=== PATIENT | female | born 1955 | race Caucasian/White ===

== ENCOUNTER 2016-07-12 09:27 | Emergency (ER) | payer BC, OTHER ==
[~2016-07-12] VITALS: Ht 152.4 cm; Wt 40.0 kg
[~2016-07-12 09:27] MED LIST: CITA10SO PO; HYDR-3580 PO; MEGE40TA PO; TRAZ300T2 PO; ZOCO40TA PO
[2016-07-12 09:30] VITALS: BP 118/57; PULSE 103; RESP 15; TEMP 98.2; O2SAT 97
[2016-07-12 09:40] VITALS: BP 131/74; PULSE 86; RESP 18; O2SAT 95
[2016-07-12] MEDS ORDERED: MUPI2CRE3 (09:49)
[2016-07-12] MEDS ORDERED: OMEP20TA PO (09:49)
[2016-07-12] MEDS ORDERED: CITA40TA4 PO (09:49)
[2016-07-12] MEDS ORDERED: CEPH500C PO (09:49)
[2016-07-12] MEDS ORDERED: SIMV20TA PO (09:49)
[2016-07-12] MEDS ORDERED: TEMA30CA PO (09:49)
[2016-07-12] MEDS ORDERED: CLON1TAB PO (09:49)
--- NOTE | 2016-07-12 10:08 | PD ---
HPI Chief Complaint: Skin Problem Time Seen by Provider: 10:06 Travel History International Travel<30 days: No Contact w/Intl Traveler<30days: No Traveled to known affect area: No History of Present Illness HPI 60-year-old female with history of anal cancer status post chemotherapy and radiation, presents to the ER today for 1 week history of left labia majora area of increased swelling, redness, abscess formation, was sent in by her primary care physician. She denies any new fevers or any other issues. Modifying Factors: None Associated Signs & Symptoms: Left labia majora area abscess and pain Risk Factors: None PFSH Past Medical History AAA: No Alzheimer's Disease: No Anxiety: Yes Depression: Yes Cancer: Yes (RECTUM) Cardiovascular Problems: No Chemotherapy: Yes Endocrine: No Gastrointestinal Disorders: Yes GERD: No Genitourinary: No Hiatal Hernia: No Immune Disorder: No Musculoskeletal: No Neurologic: No Psychiatric: Yes Reproductive: No Respiratory: No Radiation Therapy: Yes (FRIDAY ) Ulcer: No Tetanus Vaccination: < 5 Years Influenza Vaccination: Yes ?: Not Tubal Ligation: Yes Past Surgical History AICD: No Arteriovenous Shunt: No Insulin Pump: No Joint Replacement: No Pacemaker: No Other Surgery: Yes (RECTAL SURG / right arm picc) Social History Alcohol Use: No Tobacco Use: Yes (1 ppd) Substance Use: No Allergies-Medications (Allergen,Severity, Reaction): Coded Allergies: No Known Allergies (Unverified , 07/12/16) Reported Meds & Prescriptions Reported Meds & Active Scripts Active Reported Mupirocin (Mupirocin Calcium (Topical)) 2 % Cre Omeprazole 20 Mg Tab 20 Mg PO BID Citalopram (Citalopram Hydrobromide) 40 Mg Tab 40 Mg PO DAILY Cephalexin 500 Mg Cap 500 Mg PO Q6H Simvastatin 20 Mg Tab 20 Mg PO DAILY Clonazepam 1 Mg Tab 1 Mg PO BID PRN Temazepam 30 Mg Cap 30 Mg PO HS PRN Review of Systems Except as stated in HPI: all other systems reviewed are Neg Physical Exam Narrative GENERAL: Well-nourished, well-developed elderly white female patient in no acute distress. SKIN: Warm and dry. HEAD: Normocephalic. EYES: No scleral icterus. No injection or drainage. NECK: Supple, trachea midline. CARDIOVASCULAR: Regular rate and rhythm without murmurs, gallops, or rubs. RESPIRATORY: Breath sounds equal bilaterally. No accessory muscle use. GASTROINTESTINAL: Abdomen soft, non-tender, nondistended. : Normal external genitalia with left labia majora 2 cm area of erythema, tenderness, and underlying fluctuance under a pustule. MUSCULOSKELETAL: No cyanosis, or edema. BACK: Nontender without obvious deformity. No CVA tenderness. Data Data Last Documented VS Vital Signs Date Time Temp Pulse Resp B/P Pulse Ox O2 Delivery O2 Flow Rate FiO2 07/12/16 09:40 99 07/12/16 09:40 18 131/74 95 Room Air 07/12/16 09:30 98.2 Orders Wound Culture And Gram Stain (07/12/16 10:06) Lidocai-Epi 1%-1:100,000 Inj (Xylocaine- (07/12/16 10:15) MDM Medical Decision Making Medical Screen Exam Complete: Yes Emergency Medical Condition: Yes Medical Record Reviewed: Yes Differential Diagnosis Left labia majora abscess Narrative Course Primary care physician apparently had tried antibiotics and had failed antibiotic treatment. I&D was done by my PA without issues. At this point, my plan would be to release the patient would follow-up to primary care physician for wound check in 2 days. Return for any worsening in pain, swelling, fevers, and as needed. The plan has been discussed with the patient and she states understanding. Diagnosis Primary Impression: Abscess of labia majora Med/Other Pt SpecificInfo: Prescription(s) given Scripts Sulfamethoxazole-Trimethoprim (Bactrim DS)800-160 Mg Tab1 Tab PO BID #14 TAB Ref 0 Prov:Gustavo Fontana MD 07/12/16 Ibuprofen (Motrin Ib)200 Mg [id number] Mg PO Q6H PRN (PAIN SCALE 1 TO 10) #21 TAB Ref 0 Prov:Gustavo Fontana MD 07/12/16 Disposition: 01 DISCHARGE HOME Condition: Stable Gustavo Fontana MD Jul 12, 2016 10:08
[2016-07-12] MEDS ORDERED: LIDOCAINE 1%/EPINEPHrine 1:100,000 SOLN 20 ML VIAL INFIL ONE (10:15)
--- NOTE | 2016-07-12 10:34 | PD ---
Physical Exam Date Seen by Provider: Jul 12, 2016 Time Seen by Provider: 10:33 Narrative I was asked by Dr. Fontana to incise and drain abscess of the patient's left labia majora. Please see her documentation for full history and physical. Data Data Last Documented VS Vital Signs Date Time Temp Pulse Resp B/P Pulse Ox O2 Delivery O2 Flow Rate FiO2 07/12/16 09:40 99 07/12/16 09:40 18 131/74 95 Room Air 07/12/16 09:30 98.2 Orders Wound Culture And Gram Stain (07/12/16 10:06) Lidocai-Epi 1%-1:100,000 Inj (Xylocaine- (07/12/16 10:15) MDM Supervised Visit with TRACIE: No Procedures Procedure Narrative INCISION AND DRAINAGE OF ABSCESS: The area was prepped and was sterilely draped. A subcutaneous wheal of 1% Xylocaine with epinephrine with a total number 3 mL was used to anesthetize the area. The area was properly anesthetized. A number 11 scalpel was used to make a 1 -cm incision across the area of the abscess. Cultures were obtained. The abscess was drained an irrigated with normal saline. Quarter inch iodoform packing was placed in the wound. Sterile dressing applied. Patient advised to have packing removed in two days. Diagnosis Primary Impression: Abscess of labia majora Disposition: 01 DISCHARGE HOME Condition: Stable Neelima Garcia Jul 12, 2016 10:34
[2016-07-12] MEDS ORDERED: BACT800T5 PO (10:42)
[2016-07-12] MEDS ORDERED: MOTR200T4 PO (10:42)
[2016-07-12 10:56] VITALS: BP 127/71; PULSE 91; RESP 18; O2SAT 95
== END 2016-07-12 11:43 | disposition home or self-care (01) ==
LOC: NEPC 09:27
DX: N76.4 Abscess of vulva (principal); B96.89 Other specified bacterial agents as the cause of diseases classified elsewhere; F17.200 Nicotine dependence, unspecified, uncomplicated; Z85.048 Personal history of other malignant neoplasm of rectum, rectosigmoid junction, and anus; Z92.21 Personal history of antineoplastic chemotherapy; Z86.59 Personal history of other mental and behavioral disorders; Z87.19 Personal history of other diseases of the digestive system
CPT/HCPCS: 10061; 87070; 87185